=== PATIENT | male | born 1945 | race Caucasian/White ===

== ENCOUNTER 2020-05-14 11:38 | Outpatient (CLI) | payer BC, SELFPAY ==
--- NOTE | 2020-05-16 12:46 | PDOC.EEG ---
Neurology EEG EEG: [facility] Department of Neurology LONG-TERM AMBULATORY EEG REPORT Date of Recordin05/14/20 at 08:20:38 to 19:27:36 Interpreting Physician: Dr. Candis Martínez PCP/Referring Provider: Dr. Carl Ramírez/Dr. Tommie Garnica Reason for study: Mr. 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 Current Medications: Home Medications Medication Instructions Recorded Confirmed Type atorvastatin 20 mg tablet 20 mg PO QHS 12/26/19 05/16/20 History cyclosporine 0.05 % eye drops 1 drp OP Q12H 12/26/19 05/16/20 History laxmefro-iqz-xoddn acid 300 1 tab PO DAILY 12/26/19 05/16/20 History mcg-lycopene 600 mcg-lutein 300 mcg tablet levetiracetam 500 mg tablet 500 mg PO BID #60 tab 12/28/19 05/16/20 Rx METHODS: An 18-channel digitized electroencephalogram was recorded in the ambulatory setting with video. The 10/20 international system of electrode placement was used and bipolar and referential electrode montages were recorded. In addition to EEG the patient was monitored for EKG and by video. Activation procedures of photic stimulation and hyperventilation were performed if applicable. The duration of the recording was ~11 hours. The test was ended early due to a technical/cable problem with the EEG machine. DESCRIPTION OF EEG: Waking background activity: During maximal wakefulness a 10-Hz posterior background rhythm was present which was well-modulated, symmetrical, reactive to eye opening, and of moderate voltage. Faster frequencies were present in the bilateral anterior head regions. There was a normal anterior-posterior voltage gradient. Drowsy and sleeping background activity: No drowsiness or sleep was seen. Interictal abnormalities: none. Ictal findings: Event #1 16:40:18 to 16:41:55 -Clinical manifestations: None. Sitting in recliner watching television. -EEG findings: Single, high-amplitude Fp1 spike-waves that become more frequent/build-up with apparent spread into left temporal lobe (F3, T3, F7) and then abrupt cessation. No subsequent focal slowing. Event #2 16:43:25 to 16:47:02 (This is not clearly a subclinical seizure). -Clinical manifestations: None. Sitting in recliner watching television. -EEG findings: PLED-like fairly rhythmic F7 spike-waves with bradley in the left fronto-temporal lobe. Of note, there is gradual generalized loss of alpha activity during this time that abruptly resumes once the PLED-like activity returns. Activating Procedures: Photic stimulation was performed which produced a symmetrical posterior driving response at various flash frequencies. This also produced an excessive driving response in the frontal lobes. Hyperventilation was not performed. EKG: EKG revealed normal sinus rhythm. Previously seen pauses not seen. INTERPRETATION: This long-term EEG is abnormal due to two likely focal seizures generating out of the left frontal lobe, without generalization, and with no clear clinical manifestations. This study was ended early due to machine/technical dysfunction. PRIOR EEG: -Amb EEG (01/02/20-01/03/20): Five likely focal seizures generating out of the left frontal lobe, without generalization, and with unclear clinical manifestations. Abundant non-rhythmic, left frontal spike-wave discharges (F3) during non-REM sleep. CLINICAL CORRELATION: This recording represents the interictal expression of a localization-related epilepsy and indicates the patient is at increased risk for partial and secondary tonic-clonic seizures. Two apparent focal seizures captured with no clear clinical activity. This study was ended early due to machine/technical dysfunction. Clinical correlation is advised. Candis Martínez MD
== END 2020-05-14 11:58 ==
PROVIDERS: PCP Internal Medicine; Visit Provider Psychiatry & Neurology Neurology
DX: G40.009 Localization-related (focal) (partial) idiopathic epilepsy and epileptic syndromes with seizures of localized onset, not intractable, without status epilepticus (principal); D32.0 Benign neoplasm of cerebral meninges

== ENCOUNTER 2020-05-14 14:59 | Outpatient (CLI) | payer BC, SELFPAY | END 2020-05-14 15:19 | PROVIDERS: PCP Internal Medicine; Visit Provider Psychiatry & Neurology Neurology | DX: G40.009 Localization-related (focal) (partial) idiopathic epilepsy and epileptic syndromes with seizures of localized onset, not intractable, without status epilepticus (principal); D32.0 Benign neoplasm of cerebral meninges; R94.01 Abnormal electroencephalogram [EEG] | CPT/HCPCS: 95711 ==

== ENCOUNTER 2020-05-24 07:25 | Outpatient (CLI) | payer BC, SELFPAY ==
[2020-05-26 14:33] LABS: PSA, Ultrasensitive 7.7 ng/mL (<= 6.5)
== END 2020-05-24 07:45 ==
PROVIDERS: PCP Internal Medicine; Visit Provider Radiology Radiation Oncology
DX: C61 Malignant neoplasm of prostate (principal)
CPT/HCPCS: 36415; 84153

== ENCOUNTER 2021-02-22 01:03 | Outpatient (CLI) | payer BC, SELFPAY ==
--- NOTE | 2021-02-25 15:30 | PDOC.EEG_ITS ---
Neurology EEG EEG: [facility] Department of Neurology LONG-TERM AMBULATORY EEG REPORT Date of Recordin02/22/21 at 08:28:01 to 02/23/21 at 10:00:07 Interpreting Physician: Dr. Candis Martínez PCP/Referring Provider: Dr. Carl Ramírez Reason for study: Mr. Mena is a 76 year-old man with known focal epilepsy and a right frontal cerebral meningioma, who had a recent breakthrough seizure, now on increased dose of levetiracetam. Current Medications: Home Medications Medication Instructions Recorded Confirmed Type atorvastatin 20 mg tablet 20 mg PO QHS 12/26/19 02/19/21 History cyclosporine 0.05 % eye drops 1 drp OP Q12H 12/26/19 02/19/21 History tjsbhupz-toh-glyak acid 300 1 tab PO DAILY 12/26/19 02/19/21 History mcg-lycopene 600 mcg-lutein 300 mcg tablet levetiracetam 750 mg tablet 1,500 mg PO BID #180 tab 01/30/21 02/19/21 Rx METHODS: An 18-channel digitized electroencephalogram was recorded in the ambulatory setting with video. The 10/20 international system of electrode placement was used and bipolar and referential electrode montages were recorded. In addition to EEG the patient was monitored for EKG and by video. Activation procedures of photic stimulation and hyperventilation were performed if applicable. The duration of the recording was ~25 hours. DESCRIPTION OF EEG: Waking background activity: During maximal wakefulness a 10-Hz posterior background rhythm was present which was well-modulated, symmetrical, reactive to eye opening, and of moderate voltage. Faster frequencies were present in the bilateral anterior head regions. There was a normal anterior-posterior voltage gradient. Drowsy and sleeping background activity: During drowsiness, there was atten uation of the posterior dominant background rhythm and vertex waves. Normal stage II and III sleep was present with symmetrical sleep spindles, K-complexes, and vertex waves with slowing of the background rhythm to delta/theta frequencies. REM sleep manifested by rapid lateral eye movements and faster background rhythms was recorded. Arousal was unremarkable. Interictal abnormalities: Frequent high-amplitude F7 spike-wave discharges, that at times, was near continuous but also non-rhythmic. Ictal findings: No seizures or events recorded. Activating Procedures: Photic stimulation was performed which produced a symmetrical posterior driving response at various flash frequencies. Hyperventilation was not performed. EKG: EKG revealed normal sinus rhythm. INTERPRETATION: This long-term EEG is abnormal due to frequent interictal F7 spike-wave discharges. PRIOR EEG: -Amb EEG (01/02/20 x 24hours): 5 possible/likely focal seizures out of left frontal lobe. No interactions during these, so clinical manifestation unknown. However, with 2 of them, asked him a question right as they were ending, so I wonder if she sensed or saw something. Abundant interictal F3 spikes during sleep. -Amb EEG (05/14/20 x 11 hours): Shortened study due to EEG machine malfunction and no sleep seen. 2 possible likely focal seizures out of the left frontal lobe again. No interactions again - watching TV. CLINICAL CORRELATION: The above findings are consistent with patient's known focal onset epilepsy. While no seizures were recorded, the frequency of interictal activity has significantly increased compared to the previous EEG. Candis Martínez MD
== END 2021-02-22 01:04 | disposition home or self-care (01) ==
LOC: RT 01:03
PROVIDERS: PCP Internal Medicine; Visit Provider Psychiatry & Neurology Neurology
DX: R41.89 Other symptoms and signs involving cognitive functions and awareness (principal); G40.109 Localization-related (focal) (partial) symptomatic epilepsy and epileptic syndromes with simple partial seizures, not intractable, without status epilepticus; C70.0 Malignant neoplasm of cerebral meninges; R94.01 Abnormal electroencephalogram [EEG]
CPT/HCPCS: 95714

== ENCOUNTER → 2022-06-30 14:16 | Outpatient (BNVA) | payer MEDICARE, SELFPAY | PROVIDERS: PCP Internal Medicine; Referring Provider Internal Medicine; Visit Provider Psychiatry & Neurology Neurology | DX: G40.209 Localization-related (focal) (partial) symptomatic epilepsy and epileptic syndromes with complex partial seizures, not intractable, without status epilepticus (principal); D32.9 Benign neoplasm of meninges, unspecified; I10 Essential (primary) hypertension | CPT/HCPCS: 99214 ==

== ENCOUNTER → 2022-12-29 10:40 | Outpatient (BNVA) | payer MEDICARE, SELFPAY | PROVIDERS: PCP Internal Medicine; Visit Provider Psychiatry & Neurology Neurology | DX: G40.209 Localization-related (focal) (partial) symptomatic epilepsy and epileptic syndromes with complex partial seizures, not intractable, without status epilepticus (principal); D32.9 Benign neoplasm of meninges, unspecified; R29.2 Abnormal reflex; I10 Essential (primary) hypertension | CPT/HCPCS: 99213 ==

== ENCOUNTER → 2023-12-28 09:44 | Outpatient (BNVA) | payer MEDICARE, SELFPAY | PROVIDERS: PCP Internal Medicine; Referring Provider Internal Medicine; Visit Provider Psychiatry & Neurology Neurology | DX: G40.209 Localization-related (focal) (partial) symptomatic epilepsy and epileptic syndromes with complex partial seizures, not intractable, without status epilepticus (principal); D32.9 Benign neoplasm of meninges, unspecified | CPT/HCPCS: 99213 ==

== ENCOUNTER → 2024-12-26 09:41 | Outpatient (BNVA) | payer MEDICARE, SELFPAY | PROVIDERS: PCP Internal Medicine; Referring Provider Internal Medicine; Visit Provider Psychiatry & Neurology Neurology | DX: G40.209 Localization-related (focal) (partial) symptomatic epilepsy and epileptic syndromes with complex partial seizures, not intractable, without status epilepticus (principal); D32.9 Benign neoplasm of meninges, unspecified; I10 Essential (primary) hypertension | CPT/HCPCS: 99214 ==